=== PATIENT | female | born 1945 | race Caucasian/White ===

== ENCOUNTER 2016-08-18 09:57 | Outpatient (CLI) | payer MEDICARE, OTHER ==
[2016-08-18 10:50] LABS: ALT (SGPT) 17 U/L (0-55); AST (SGOT) 19 U/L (5-34); Albumin 4.2 g/dL (3.4-4.8); Alkaline Phosphatase 100 U/L (40-150); Anion Gap 12 mmol/L (10-20); BUN (Urea Nitrogen) 17 mg/dL (9.8-20.1); Bilirubin, Total 0.6 mg/dL (0.2-1.2); CK (CPK) 156 U/L (29-168); Calc. Creatinine Clearance 0 mL/min (70-130); Calcium 9.5 mg/dL (7.8-10.44); Carbon Dioxide 25 mmol/L (23-31); Chloride 109 mmol/L (98-107); Estimated GFR-MDRD 56; Globulin 3.2 g/dL (2.4-3.5); Glucose 105 mg/dL (83-110); Protein, Total 7.4 g/dL (5.8-8.1); Sodium 142 mmol/L (136-145)
[2016-08-18 11:11] LABS: Thyroid Stimulating Hormone 2.2842 uIU/mL (0.35-4.94); Vitamin D, 25 Hydroxy 26.5 ng/mL (> 30.0)
[2016-08-18 11:30] LABS: #Basophils 0.1 thou/uL (0.0-0.2); #Eosinphils 0.1 thou/uL (0.0-0.7); #Lymphocytes 1.7 thou/uL (1.20-3.40); #Monocytes 0.5 thou/uL (0.11-0.59); #Neutrophils 3.1 thou/uL (1.40-6.50); %Basophils 2.2 % (0.0-1.0); %Lymphocytes 30.5 % (21.0-51.0); %Monocytes 8.4 % (0.0-10.0); Hemoglobin 15.5 g/dL (12.0-16.0); Mean Corpuscular HGB CONC 33.3 g/dL (32.0-36.0); Mean Corpuscular Hemoglobin 32.1 pg (27.0-31.0); Mean Corpuscular Volume 96.3 fl (81.0-99.0); Mean Platelet Volume 8.7 fL (7.4-10.4); Platelet Count 248 thou/uL (130-400); RBC Distribution Width 13.5 % (11.5-14.5); Red Blood Cell (RBC) Count 4.85 mill/uL (4.20-5.40); White Blood Cell (WBC) Count 5.5 thou/uL (4.8-10.8)
[2016-08-18 17:52] LABS: CRP (Inflammatory) Less than 0.50 mg/dL (= or < 0.5)
== END 2016-08-18 09:58 | disposition home or self-care (01) ==
LOC: BURLAB 09:57
PROVIDERS: ATTEND Student in an Organized Health Care Education/Training Program
DX: R25.1 Tremor, unspecified (principal); R25.2 Cramp and spasm; R26.9 Unspecified abnormalities of gait and mobility
CPT/HCPCS: 36415; 80053; 82164; 82306; 82550; 82607; 82951; 84207; 84425; 84443; 85025; 85652; 86038; 86140; 86592